=== PATIENT | female | born 1975 | race Caucasian/White ===

== ENCOUNTER 2018-07-18 11:53 | Emergency (ER) | payer MEDICAID, OTHER ==
[~2018-07-18] VITALS: Ht 165.1 cm; Wt 120.2 kg
[2018-07-18 12:06] VITALS: BP_SYST 158
[2018-07-18] MEDS ORDERED: NACL 0.9% 1,000 ML IV ONE (14:30)
[2018-07-18 14:53] LABS: HEMATOCRIT 42.1 % (36-48); MEAN CORPUSCULAR HEMOGLOBIN 28 pg (27-31); MEAN CORPUSCULAR HGB CONC 33 % (32-36); MEAN CORPUSCULAR VOLUME 85 fL (79.0-98.0); RED BLOOD CELL COUNT(AUTO) 4.98 MIL/uL (4.2-6.2); RED CELL DISTRIBUTION WIDTH 14.5 % (9.0-15.0); WHITE BLOOD COUNT (AUTO) 8.3 K/uL (4.8-10.8)
[2018-07-18 14:54] LABS: BASOPHILS % (AUTO) 0.5 % (0.0-2.0); EOSINOPHILS # (AUTO) 0.2 K/uL (0.0-0.4); LYMPHOCYTES # (AUTO) 2.7 K/uL (1.0-5.5); LYMPHOCYTES % (AUTO) 32.1 % (20.5-51.5); MONOCYTES # (AUTO) 0.6 K/uL (0.0-1.0); NEUTROPHILS # (AUTO) 4.8 K/uL (1.8-7.7); NEUTROPHILS % (AUTO) 57.4 % (40.0-70.0); PLATELET COUNT (AUTO) 310 K/uL (130-430)
[2018-07-18 15:11] LABS: ANION GAP 12 (5-15); CALCIUM 9.4 mg/dL (8.4-11.0); CHLORIDE 102 mmol/L (98-107); CREATININE 0.61 mg/dL (0.55-1.30); GLUCOSE 87 mg/dL (70-99); POTASSIUM 4.2 mmol/L (3.5-5.1); SODIUM SERUM 137 mmol/L (136-145); UREA NITROGEN, BLOOD 10 mg/dL (8-21)
[2018-07-18 15:14] LABS: GFR AFRICAN AMERICAN 137 mL/min (>90)
[2018-07-18 15:19] LABS: ALANINE AMINOTRANSFERASE 35 U/L (12-78); ALBUMIN 3.6 g/dL (3.4-4.8); ASPARTATE AMINOTRANSFERASE 24 U/L (10-37); TOTAL BILIRUBIN 0.4 mg/dL (0.0-1.0)
[2018-07-18 17:15] VITALS: BP_SYST 140
== END 2018-07-18 17:15 | disposition home or self-care (01) ==
LOC: SED 11:53
DX: E86.0 Dehydration (principal); R42 Dizziness and giddiness; R03.0 Elevated blood-pressure reading, without diagnosis of hypertension; Z88.5 Allergy status to narcotic agent; Z88.6 Allergy status to analgesic agent
CPT/HCPCS: 36415; 70450; 71045; 80053; 81025; 84484; 85025; 93005; 96360; 99284; J7030

== ENCOUNTER 2019-12-24 17:13 | Emergency (ER) | payer MEDICAID ==
[~2019-12-24] VITALS: Ht 165.1 cm; Wt 127.0 kg
[2019-12-24 17:28] VITALS: BP_SYST 129
[2019-12-24] MEDS ORDERED: METOCLOPRAMIDE HCL 10 MG/2 ML VIAL IVP ONE (18:00)
[2019-12-24 18:03] LABS: BASOPHILS # (AUTO) 0.1 K/uL (0.0-0.2); BASOPHILS % (AUTO) 0.7 % (0.0-2.0); EOSINOPHILS # (AUTO) 0.2 K/uL (0.0-0.4); EOSINOPHILS % (AUTO) 1.6 % (0.0-4.0); HEMATOCRIT 37.2 % (36-48); HEMOGLOBIN 12.3 g/dL (12.0-16.0); LYMPHOCYTES # (AUTO) 2.1 K/uL (1.0-5.5); LYMPHOCYTES % (AUTO) 20.2 % (20.5-51.5); MEAN CORPUSCULAR HEMOGLOBIN 28 pg (27-31); MEAN CORPUSCULAR HGB CONC 33 % (32-36); MEAN CORPUSCULAR VOLUME 85 fL (79.0-98.0); MONOCYTES # (AUTO) 0.6 K/uL (0.0-1.0); MONOCYTES % (AUTO) 6.2 % (1.7-9.3); NEUTROPHILS # (AUTO) 7.4 K/uL (1.8-7.7); NEUTROPHILS % (AUTO) 71.3 % (40.0-70.0); PLATELET COUNT (AUTO) 310 K/uL (130-430); RED CELL DISTRIBUTION WIDTH 14.7 % (9.0-15.0); WHITE BLOOD COUNT (AUTO) 10.4 K/uL (4.8-10.8)
[2019-12-24 18:09] LABS: ANION GAP 9 (5-15); CALCIUM 9.1 mg/dL (8.4-11.0); CHLORIDE 103 mmol/L (98-107); CREATININE 0.62 mg/dL (0.55-1.30); GLUCOSE 118 mg/dL (70-99); POTASSIUM 3.5 mmol/L (3.5-5.1); SODIUM SERUM 137 mmol/L (136-145); UREA NITROGEN, BLOOD 11 mg/dL (8-21)
[2019-12-24 18:13] LABS: GFR AFRICAN AMERICAN 134 mL/min (>90)
[2019-12-24 18:18] LABS: ALANINE AMINOTRANSFERASE 32 U/L (12-78); ALBUMIN 3.4 g/dL (3.4-4.8); ASPARTATE AMINOTRANSFERASE 22 U/L (10-37); LIPASE 114 U/L (73-393); TOTAL BILIRUBIN 0.3 mg/dL (0.0-1.0)
[2019-12-24] MEDS ORDERED: NACL 0.9% 1,000 ML IV ONE (19:00)
[2019-12-24] MEDS ORDERED: HALOPERIDOL LACTATE 5 MG/ML VIAL IVP ONE (20:30)
[2019-12-24 21:45] VITALS: BP_SYST 119
== END 2019-12-24 21:44 | disposition home or self-care (01) ==
LOC: SED 17:13
DX: R11.2 Nausea with vomiting, unspecified (principal); R42 Dizziness and giddiness
CPT/HCPCS: 36415; 80053; 81002; 81025; 83690; 84484; 85025; 93005; 96361; 96374; 96375; 99285; J1630; J2765; J7030

== ENCOUNTER 2023-03-19 14:20 | Emergency (ER) | payer MEDICAID ==
[~2023-03-19] VITALS: Ht 165.1 cm; Wt 135.2 kg
[2023-03-19 14:25] VITALS: BP_SYST 155; PULSE 74; RESP 18; TEMP 97.8; O2SAT 96
[2023-03-19] MEDS ORDERED: ALBMDI INH ×2 (16:33→17:19)
[2023-03-19] MEDS ORDERED: AMOX500C2 PO ×2 (16:38→17:19)
[2023-03-19 16:49] LABS: INFLUENZA TYPE A Negative (NEGATIVE); INFLUENZA TYPE B NEGATIVE (NEGATIVE)
[2023-03-19 17:26] VITALS: BP_SYST 155; PULSE 74; RESP 18; TEMP 97.8; O2SAT 96
== END 2023-03-19 17:26 | disposition home or self-care (01) ==
LOC: SED 14:20
DX: J40 Bronchitis, not specified as acute or chronic (principal); R05.3 Chronic cough; Z88.5 Allergy status to narcotic agent; Z88.6 Allergy status to analgesic agent; Z79.899 Other long term (current) drug therapy; Z20.822 Contact with and (suspected) exposure to COVID-19
CPT/HCPCS: 36415; 71045; 99284

== ENCOUNTER 2024-01-31 11:00 | Emergency (ER) | payer BC, MEDICAID ==
[~2024-01-31] VITALS: Ht 167.6 cm; Wt 101.2 kg
[~2024-01-31 11:00] MED LIST: ALBMDI INH; AMOX500C2 PO
[2024-01-31 11:17] VITALS: BP_SYST 130; PULSE 75; RESP 18; TEMP 97.9; O2SAT 96
[2024-01-31] MEDS: METOCLOPRAMIDE HCL 10 MG/2 ML VIAL IVP ONE (11:54)
[2024-01-31] MEDS: NACL 0.9% 1,000 ML IV ONE (11:54)
[2024-01-31] MEDS: MECLIZINE HCL 25 MG TABLET (ANITVERT) PO ONE (11:55)
[2024-01-31] MEDS: ACETAMINOPHEN 500 MG TABLET PO ONE (11:55)
[2024-01-31 12:05] LABS: BASOPHILS # (AUTO) 0.1 K/uL (0.0-0.2); BASOPHILS % (AUTO) 0.9 % (0.0-2.0); EOSINOPHILS # (AUTO) 0.2 K/uL (0.0-0.4); EOSINOPHILS % (AUTO) 2.2 % (0.0-4.0); HEMATOCRIT 39.6 % (36-48); HEMOGLOBIN 13.2 g/dL (12.0-16.0); LYMPHOCYTES # (AUTO) 2.5 K/uL (1.0-5.5); LYMPHOCYTES % (AUTO) 30.5 % (20.5-51.5); MEAN CORPUSCULAR HEMOGLOBIN 29 pg (27-31); MEAN CORPUSCULAR HGB CONC 33 % (32-36); MEAN CORPUSCULAR VOLUME 85 fL (79.0-98.0); MONOCYTES # (AUTO) 0.3 K/uL (0.0-1.0); MONOCYTES % (AUTO) 3.9 % (1.7-9.3); NEUTROPHILS # (AUTO) 5.1 K/uL (1.8-7.7); NEUTROPHILS % (AUTO) 62.5 % (40.0-70.0); PLATELET COUNT (AUTO) 312 K/uL (130-430); RED BLOOD CELL COUNT(AUTO) 4.64 MIL/uL (4.2-6.2); RED CELL DISTRIBUTION WIDTH 14.5 % (9.0-15.0); WHITE BLOOD COUNT (AUTO) 8.1 K/uL (4.8-10.8)
[2024-01-31 12:22] LABS: ALANINE AMINOTRANSFERASE 47 U/L (12-78); ALBUMIN 3.4 g/dL (3.4-4.8); ANION GAP 9 (5-15); ASPARTATE AMINOTRANSFERASE 38 U/L (10-37); CALCIUM 9.4 mg/dL (8.4-11.0); CARBON DIOXIDE 28 mmol/L (23-29); CHLORIDE 105 mmol/L (98-107); CREATININE 0.75 mg/dL (0.55-1.30); GFR AFRICAN AMERICAN 106 mL/min (>90); GLUCOSE 137 mg/dL (74-106); POTASSIUM 3.6 mmol/L (3.5-5.1); SODIUM SERUM 142 mmol/L (136-145); TOTAL BILIRUBIN 0.4 mg/dL (0.0-1.0); TOTAL PROTEIN, SERUM 8.1 g/dL (6.4-8.3); UREA NITROGEN, BLOOD 11 mg/dL (8-21)
[2024-01-31 12:25] LABS: GFR NON AFRICAN-AMERICAN 87 mL/min (>90)
[2024-01-31 13:11] VITALS: BP_SYST 140; PULSE 75; RESP 18; TEMP 97.9; O2SAT 96
== END 2024-01-31 13:10 | disposition home or self-care (01) ==
LOC: SED 11:00
DX: R42 Dizziness and giddiness (principal); R51.9 Headache, unspecified; Z88.5 Allergy status to narcotic agent; Z79.899 Other long term (current) drug therapy
CPT/HCPCS: 99284; 70450; 80053; 83735; 85025; 84484; 36415; J2765; J7030; J8597